=== PATIENT | male | born 1965 | race Caucasian/White ===

== ENCOUNTER 2017-03-20 12:19 | Observation (INO) | payer OTHER ==
[~2017-03-20] VITALS: Ht 172.7 cm; Wt 130.0 kg
[2017-03-20 13:25] LABS: HEMATOCRIT 46.7 % (38.0-50.0); MCH 29.2 PG (29.0-34.0); MCHC 32.8 G/DL (30.0-36.0); MCV 89.1 FL (86-99); MEAN PLAT.VOLUME 9.9 uM^3 (9.0-12.4); PLATELET COUNT 275 K/uL (156-360); RBC DIS.WIDTH-CV 13.9 % (11.8-14.6); RBC DIS.WIDTH-SD 45.5 % (39-53); RED BLOOD COUNT 5.24 M/uL (4.00-5.50); WHITE BLOOD COUNT 8.7 K/uL (4.1-10.2)
[2017-03-20 13:33] LABS: CHLORIDE 104 mEq/L (99-109); POTASSIUM 4.3 mEq/L (3.7-5.4); SODIUM 140 mEq/L (136-147)
[2017-03-20] MEDS ORDERED: PENNSAID112 GM TP (13:33)
[2017-03-20] MEDS ORDERED: OMEPRAZOLE40 M1 PO (13:34)
[2017-03-20 13:35] LABS: GLUCOSE 106 mg/dL (70-99)
[2017-03-20] MEDS ORDERED: ZANTAC150 MG PO (13:35)
[2017-03-20] MEDS ORDERED: VALSARTAN160 MG PO (13:35)
[2017-03-20 13:36] LABS: ANION GAP 12 MEQ/L (2-14)
[2017-03-20] MEDS ORDERED: REFRESH TEARS15 ML BOTH EYES (13:36)
[2017-03-20] MEDS ORDERED: CENTRUM SILVER1 EAC3 PO (13:36)
[2017-03-20] MEDS ORDERED: ZYRTEC10 M3 PO (13:37)
[2017-03-20] MEDS ORDERED: FLONASE16 G1 BOTH NARES (13:37)
[2017-03-20 13:39] LABS: GFR ESTIMATE (CALCULATED) > 59 mL/min/
[2017-03-20 13:40] LABS: UREA NITROGEN (BUN) 16 mg/dL (9-23)
[2017-03-20 13:45] LABS: TROP-I INTERPRETATION NEGATIVE; TROPONIN-I < 0.01 ng/mL (0.0-0.30)
[2017-03-20 15:23] LABS: D-DIMER ELISA 0.25 mg/L FEU (< 0.57)
[2017-03-20 15:56] VITALS: BP 162/88
[2017-03-20 19:45] VITALS: BP 143/84
[2017-03-20 21:07] LABS: TROP-I INTERPRETATION NEGATIVE; TROPONIN-I < 0.01 ng/mL (0.0-0.30)
[2017-03-21 02:22] LABS: TROP-I INTERPRETATION NEGATIVE; TROPONIN-I < 0.01 ng/mL (0.0-0.30)
[2017-03-21 06:18] LABS: INTER. NORMALIZED RATIO 1.1; PROTHROMBIN TIME 11.3 (9.2-11.2)
[2017-03-21 07:33] VITALS: BP 186/94
[2017-03-21 09:04] VITALS: BP 148/77
[2017-03-21 11:39] VITALS: BP 171/97
[2017-03-21] MEDS ORDERED: OMEPRAZOLE40 M1 PO (13:24)
[2017-03-21] MEDS ORDERED: FOLIC ACID1 MG PO (13:24)
[2017-03-21] MEDS ORDERED: ASPIR-LOW81 MG PO (13:24)
[2017-03-21] MEDS ORDERED: VALSARTAN160 MG PO (13:24)
[2017-03-21] MEDS ORDERED: Thiamine,Vitamin B1 PO (13:24)
== END 2017-03-21 15:23 | disposition home or self-care (01) ==
LOC: EME 12:19 → EDOF 13:58 → 5WEST 13:58 → EDOF 13:58 → 5WEST 15:54
PROVIDERS: Nurse Practitioner Adult Health; Nurse Practitioner Family
DX: R07.89 Other chest pain (principal); F10.20 Alcohol dependence, uncomplicated; I10 Essential (primary) hypertension; E78.5 Hyperlipidemia, unspecified; G47.30 Sleep apnea, unspecified; K21.9 Gastro-esophageal reflux disease without esophagitis; F41.9 Anxiety disorder, unspecified; F32.9 Major depressive disorder, single episode, unspecified; E66.9 Obesity, unspecified; Z68.41 Body mass index [BMI] 40.0-44.9, adult
CPT/HCPCS: 71020; 80048; 84484; 85027; 85379; 85610; 87493; 93005; 99281; 99285; G0378; J1644; J7030; S0028